=== PATIENT | female | born 1990 | race Hispanic/Latino ===

== ENCOUNTER 2025-05-17 20:50 | Emergency (ER) | payer SELFPAY ==
[~2025-05-17] VITALS: Ht 149.9 cm; Wt 47.6 kg
[2025-05-17 20:56] VITALS: BP 89/64; PULSE 88; RESP 18; TEMP 98.6; O2SAT 99
[2025-05-17] MEDS ORDERED: NS 1000ML 1,000 ML ONE ×2 (21:10→23:30)
[2025-05-17] MEDS ORDERED: OFIRMEV 100 ML IV ONE (21:10)
[2025-05-17] MEDS: OFIRMEV 100 ML IV STA (21:15)
[2025-05-17] MEDS: NS 1000ML 1,000 ML STA ×2 (21:15→23:37)
[2025-05-17 21:16] LABS: BASOPHIL # 0.0 10^3/uL (0.0-0.1); BASOPHIL % 0.6 % (0.1-1.2); EOSINOPHIL # 0.0 10^3/uL (0.0-0.2); EOSINOPHIL % 0.0 % (0.0-5.0); HEMATOCRIT(ML) 40.6 % (36.0-46.0); IG % 0.00 % (0.00-0.50); LYMPHOCYTES # 0.49 10^3/uL1 (1.0-4.8); LYMPHOCYTES % 13.7 % (24.0-44.0); MEAN CORP HGB 30.3 pg (26-34); MEAN CORP HGB CONCENTRATION 33.5 g/dL (33-36.5); MEAN CORP VOLUME 90.4 fL (78-100); MONOCYTES # 0.3 10^3/uL (0.3-0.8); MONOCYTES % 7.0 % (5.0-12.0); NEUTROPHIL # 2.8 10^3/uL (1.8-7.7); NEUTROPHILS % 78.7 % (41.0-85.0); RED BLOOD CELL 4.49 10^6/uL (4.00-5.20); RED CELL DISTRIBUTION WIDTH 12.2 % (11.5-14.5); WHITE BLOOD CELL 3.6 10^3/uL (4.5-11.0)
[2025-05-17 21:23] LABS: LEUKOCYTE ESTERASE ,URINE NEGATIVE (NEGATIVE); NITRATE,URINE NEGATIVE (NEGATIVE)
[2025-05-17 21:31] LABS: INR 1.2; PROTHROMBIN PROTIME 11.9 SEC (9.3-11.6)
[2025-05-17 21:36] LABS: ALANINE AMINOTRANSFERASE(ML) 625.0 U/L (12-78); ALBUMIN(ML) 3.7 g/dL (3.4-5.0); CREATININE SERUM 0.97 mg/dL (0.59-1.40); EST GFR, NON-AA 65.0 (>/=60)
[2025-05-17 21:42] LABS: APPEARANCE,URINE HAZY; UA COLOR YELLOW
[2025-05-17 21:47] LABS: INFLUENZA VIRUS A ANTIGEN NEGATIVE (NEG); INFLUENZA VIRUS B ANTIGEN NEGATIVE (NEG)
[2025-05-17 22:06] VITALS: BP 91/55; PULSE 74; RESP 18; TEMP 98.6; O2SAT 99
[2025-05-17] MEDS ORDERED: NS 100ML 100 ML IV ONE (23:29)
[2025-05-17 23:34] VITALS: BP 85/49; PULSE 74; RESP 18; TEMP 98.6; O2SAT 99
[2025-05-17] MEDS: ZOSYN 3.375 GM 3.375 GM in NS 100ML 100 ML IV STA (23:37)
== END 2025-05-17 23:52 | disposition short-term general hospital (02) ==
LOC: ER 20:50
DX: A09 Infectious gastroenteritis and colitis, unspecified (principal); B15.9 Hepatitis A without hepatic coma; D72.819 Decreased white blood cell count, unspecified; E87.6 Hypokalemia; R74.8 Abnormal levels of other serum enzymes; Z20.822 Contact with and (suspected) exposure to COVID-19
CPT/HCPCS: 99291; 74177; 96365; 96375; 96366; 87426; 99292; 80053; 85025; 86677; 36415; 87070; 87880; 80074; 87804 ×2; 81001; 83690; 85610; 85730; 84703; J7030 ×2; J0131; J2543; Q9967; Q9965